=== PATIENT | male | born 1940 | race Caucasian/White ===

== ENCOUNTER 2017-01-22 19:29 | Emergency (ER) | payer OTHER ==
[2017-01-22 20:12] VITALS: TEMP 97.5
--- NOTE | 2017-01-22 20:19 | EDPHY ---
H & P Stated Complaint: unable to urinate, ny catheter in Source: Patient Exam Limitations: No limitations - Personal History Tetanus Vaccine Date: 2010 - Medical/Surgical History Hx Asthma: No Hx Chronic Respiratory Disease: No Hx Diabetes: No Hx Cardiac Disease: Yes Hx Renal Disease: No Hx Cirrhosis: No Hx Alcoholism: No Hx HIV/AIDS: No Hx Splenectomy or Spleen Trauma: No Other PMH: PE, CVA, [place], HTN. Basal cell CA removed from back and shoulder - Social History Smoking Status: Never smoked Time Seen by Provider: 01/22/17 20:13 HPI/ROS: CHIEF COMPLAINT: Urinary retention HISTORY OF PRESENT ILLNESS: 76-year-old male presents emergency department with Ny catheter in place that has not drained since he left the hospital at 4:00 p.m.. Patient was discharged from [facility] this afternoon. 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 He had a traumatic Ny catheter placed 48 hours ago causing damage to his urethra that needed a urologist to have placed the Ny catheter with a scope. Patient has had continuous bladder irrigation for the last 48 hours, it was running clear for 6 hours prior to discharge. Patient has had no urine out since discharge from the hospital at 4:00 p.m. he reports a fullness in his bladder. REVIEW OF SYSTEMS: A comprehensive 10 point review of systems is otherwise negative aside from elements mentioned in the history of present illness. (Ayala Mead) Constitutional: Initial Vital Signs Temperature (C) 36.4 C 01/22/17 20:10 Heart Rate 101 H 01/22/17 20:10 Respiratory Rate 18 01/22/17 20:10 Blood Pressure 147/99 H 01/22/17 20:10 O2 Sat (%) 95 01/22/17 20:10 O2 Delivery Mode Room Air Allergies/Adverse Reactions: No Known Allergies Allergy (Verified 01/22/17 20:10) Home Medications: Medication Instructions Recorded Aspirin [Aspirin 325 mg (*)] 325 mg PO DAILY 06/14/13 Atorvastatin Calcium [Lipitor 10 10 mg PO DAILY 06/14/13 mg (*)] Lisinopril [Zestril 20 mg (*)] 20 mg PO DAILY 06/14/13 Tamsulosin HCl [Flomax 0.4 MG (*)] 0.4 mg PO HS 06/14/13 Warfarin Sodium [Coumadin 7.5MG 3.75 mg PO HS 06/14/13 (*)] Herbals/Supplements -Info Only 1 ea PO AD 05/15/14 Pantoprazole Sodium [Protonix 40mg 40 mg PO BID #60 tab 05/16/14 (*)] Medical Decision Making ED Course/Re-evaluation: 9pm-Dr. Landers consulted. He will come see the patient. 1030pm-Dr Landers paged. He reports he will be here in 15 minutes. 11pm- Dr. Landers at bedside. He replaced the catheter. He is recommending discharge home for the patient to follow up with his urologist at [facility] tomorrow. The patient is given return precautions for any worsening symptoms. (Ayala Mead) I did not see this patient while he was in the emergency department. However his care was discussed with the nurse practitioner while the patient was in the department. I agree with treatment plan and management (Jono Redmond) Departure - Departure Disposition: Home, Routine, Self-Care Clinical Impression: Ny catheter problem Qualifiers: Encounter type: initial encounter Qualified Code(s): T83.9XXA - Unspecified complication of genitourinary prosthetic device, implant and graft, initial encounter Condition: Good Instructions: Ny Catheter Placement and Care (ED) Additional Instructions: Follow up with the Urologist at [facility] tomorrow. Return to the emergency department for any new symptoms, worsening symptoms or concerns. Referrals: Ran Landers MD [Medical Doctor] - As per Instructions (Urologist you saw at [facility])
[2017-01-22] MEDS ORDERED: LIDOCAINE 2% JELLY 20 ML (UROJECT) ONE (20:50)
[2017-01-23 00:16] VITALS: RESP 20
[2017-01-23 00:17] VITALS: BP 168/103; PULSE 102; O2SAT 95
--- NOTE | 2017-01-24 14:16 | GCON ---
[f rep st] CONSULTATION EMERGENCY ROOM CONSULTATION DATE OF CONSULTATION: 01/22/2017 REASON FOR CONSULTATION: Obstructed Blackwell catheter, clot retention. HISTORY OF PRESENT ILLNESS: The patient had an enormous resection of a squamous cell carcinoma of h is neck and shoulder in [facility]. He had a traumatic Blackwell placed down at [facility], a nd was on CBI. His CBI seemed to clear, and he was discharged home, according to the patient and hi s family, but the catheter clogged, and he came to the emergency room. I could not irrigate the cat heter. The catheter was removed at the bedside and replaced with some difficulty with a 24-Swedish 3 -way Blackwell catheter. It irrigated clear. Small clots were removed and no other clots were noted. PAST MEDICAL HISTORY: Squamous cell carcinoma, hypertension, obesity. PAST SURGICAL HISTORY: Squamous cell carcinoma and catheter placement at [facility] with CBI. MEDICATIONS: See medication reconciliation. PHYSICAL EXAMINATION: VITAL SIGNS: Blood pressure is 160s over 90s, heart rate is 90s, saturating 92% on room air. Respiratory rate is 16. ABDOMEN: Soft. Tender to palpation in the lower quadran t. The bladder was palpable. HEENT: Normocephalic, atraumatic. NECK: There is a large, healing incision, clean, dry, and intact at the neck, going down the shoulder into the chest. Drains were p laced, and these were serosanguineous. CHEST: No retractions, no pursed lip breathing. No cyanosi s. ABDOMEN: As above. MUSCULOSKELETAL: No lower extremity edema. GENITOURINARY: Blackwell catheter is in place and not draining until I changed it. PSYCHIATRIC: Normal mood and affect. INTEGUMENT : No rashes or lesions. IMAGING: His PVR noted 650 in the bladder. ASSESSMENT AND PLAN: Blackwell catheter was changed with difficulty, exchanged, and irrigated. Clot wa s evacuated, and he is to be discharged home to follow up with his urologist at [facility]. /[id number]/MODL
== END 2017-01-22 23:58 | disposition home or self-care (01) ==
DX: T83.9XXA Unspecified complication of genitourinary prosthetic device, implant and graft, initial encounter (principal); I10 Essential (primary) hypertension; I25.2 Old myocardial infarction; Z86.73 Personal history of transient ischemic attack (TIA), and cerebral infarction without residual deficits; Z85.828 Personal history of other malignant neoplasm of skin; Z79.82 Long term (current) use of aspirin; Z79.01 Long term (current) use of anticoagulants; Y73.2 Prosthetic and other implants, materials and accessory gastroenterology and urology devices associated with adverse incidents

== ENCOUNTER 2017-01-24 18:10 | Emergency (ER) | payer OTHER ==
[2017-01-24 18:18] VITALS: RESP 16
--- NOTE | 2017-01-24 19:11 | EDPHY ---
H & P Stated Complaint: Clogged Urinary Cath, SOB Time Seen by Provider: 01/24/17 18:35 - Personal History Current Tetanus/Diphtheria Vaccine: Yes Current Tetanus Diphtheria and Acellular Pertussis (TDAP): Yes Tetanus Vaccine Date: 2010 - Medical/Surgical History Hx Asthma: No Hx Chronic Respiratory Disease: No Hx Diabetes: No Hx Cardiac Disease: Yes Hx Renal Disease: No Hx Cirrhosis: No Hx Alcoholism: No Hx HIV/AIDS: No Hx Splenectomy or Spleen Trauma: No Other PMH: PE, CVA, [place], HTN. Afib and Ventricular Tachy as of 01/17. Basal cell CA removed from back and shoulder 05/09/14 - Social History Smoking Status: Never smoked Constitutional: Initial Vital Signs Temperature (C) 37.8 C 01/24/17 18:14 Heart Rate 88 01/24/17 18:14 Respiratory Rate 16 01/24/17 18:14 Blood Pressure 170/84 H 01/24/17 18:14 O2 Sat (%) 84 L 01/24/17 18:14 O2 Delivery Mode Room Air Allergies/Adverse Reactions: No Known Allergies Allergy (Verified 01/22/17 20:10) Home Medications: Medication Instructions Recorded Aspirin [Aspirin 325 mg (*)] 325 mg PO DAILY 06/14/13 Atorvastatin Calcium [Lipitor 10 10 mg PO DAILY 06/14/13 mg (*)] Lisinopril [Zestril 20 mg (*)] 20 mg PO DAILY 06/14/13 Tamsulosin HCl [Flomax 0.4 MG (*)] 0.4 mg PO HS 06/14/13 Warfarin Sodium [Coumadin 7.5MG 3.75 mg PO HS 06/14/13 (*)] Herbals/Supplements -Info Only 1 ea PO AD 05/15/14 Pantoprazole Sodium [Protonix 40mg 40 mg PO BID #60 tab 05/16/14 (*)] Medical Decision Making ED Course/Re-evaluation: CHIEF COMPLAINT: Catheter problems HISTORY OF PRESENT ILLNESS: The patient is a 76 y/o male, with a current Blackwell , complaining of suprapubic pain onset around 15:30 today with associated worsening in his penile swelling. He's had recent trauma from Blackwell placement and the current Blackwell was particularly difficult to place. He endorses reduced urine output since pain onset. He denies other symptoms. He has additional history of CVA, [place], hypertension, atrial fibrillation, and recent surgery for basal cell carcinoma. REVIEW OF SYSTEMS: A 10 point review of systems was performed and is negative with the exception of the elements mentioned in the history of present illness. PHYSICAL EXAM: HR, BP, O2 Sat, RR. Temp noted General Appearance: Alert, well hydrated, appropriate, and non-toxic appearing. Gastrointestinal: Abdomen is soft, mild suprapubic tenderness, non-distended, no masses, no rebound, no guarding, no peritoneal signs. : Edematous penis with Blackwell Neurological: Alert, appropriate, and interactive. Skin: No rashes, good turgor, no nodules on palpation. Past medical history: CVA, [place], HTN, PE, atrial fibrillation and ventricular tachycardia, basal cell carcinoma Past surgical history: carcinoma removal Family history: noncontributory Social history: friend at bedside DIFFERENTIAL DIAGNOSIS: The differential diagnosis for the patient's urinary retention and suprapubic pain included but was not limited to Blackwell malfunction , recent urologic trauma, medication side effect, neurologic causes, outflow obstruction including prostatic hypertrophy, and infection. MEDICAL DECISION MAKING: This is a 76 y/o male presenting with suprapubic pain and reduced urinary output into his Blackwell for the last 6 hours. He has recent urethral trauma that required multiple Blackwell placements. We were able to reposition the Blackwell with minimal discomfort and good urine flow. I think the balloon was likely in his urethral rather than his bladder. He feels improved and ready to go home. He has been referred to urology for follow up. Return precautions given. Departure - Departure Disposition: Home, Routine, Self-Care Clinical Impression: Malfunction of Blackwell catheter Qualifiers: Encounter type: initial encounter Qualified Code(s): T83.011A - Breakdown ( mechanical) of indwelling urethral catheter, initial encounter Condition: Good Instructions: Blackwell Catheter Placement and Care (ED) Additional Instructions: Follow up with your urologist this week. Return to the ED for worsening of condition. Referrals: NONE *PRIMARY CARE P,. [Primary Care Provider] - As per Instructions Eleazar Daley MD [Medical Doctor] - As per Instructions Report Scribed for: Moreno Cooley Report Scribed by: Taylor Fitzgerald Date of Report: 01/24/17 Time of Report: 19:28
[2017-01-24 20:01] VITALS: BP 133/79; PULSE 87; TEMP 98.6; O2SAT 95
== END 2017-01-24 20:02 | disposition home or self-care (01) ==
DX: T83.011A Breakdown (mechanical) of indwelling urethral catheter, initial encounter (principal); I10 Essential (primary) hypertension; I25.2 Old myocardial infarction; Z79.01 Long term (current) use of anticoagulants; Z86.73 Personal history of transient ischemic attack (TIA), and cerebral infarction without residual deficits; Z79.82 Long term (current) use of aspirin; Y82.8 Other medical devices associated with adverse incidents

== ENCOUNTER 2017-01-27 13:08 | Emergency (ER) | payer OTHER ==
[2017-01-27 14:41] VITALS: TEMP 97.7
[2017-01-27 15:20] LABS: % IMMATURE GRANULYOCYTES 0.5 % (0.0-1.1); ABSOLUTE IMMATURE GRANULOCYTES 0.05 10^3/uL (0.00-0.10); ADD DIFF? NO; ADD MORPH? NO; ADD SCAN? NO; ATYPICAL LYMPHOCYTE FLAG 10 (0-99); FRAGMENT RBC FLAG 0 (0-99); HEMATOCRIT 34.9 % (40.0-51.0); HEMOGLOBIN 11.8 g/dL (13.7-17.5); LEFT SHIFT FLG 0 (0-99); LIPEMIA HEMOLYSIS FLAG 90 (0-99); MEAN CELL HEMOGLOBIN 32.8 pg (27.9-34.1); MEAN CELL HEMOGLOBIN CONCENTR. 33.8 g/dL (32.4-36.7); MEAN CELL VOLUME 96.9 fL (81.5-99.8); PLATELET CLUMPS FLAG 10 (0-99); PLATELET COUNT 323 10^3/uL (150-400); RED CELL DISTRIBUTION WIDTH 13.1 % (11.5-15.2)
[2017-01-27 15:25] LABS: INR 2.56 (0.83-1.16); PROTIME(PATIENT) 27.8 SEC (12.0-15.0)
[2017-01-27 15:30] LABS: ANION GAP 12 mEq/L (8-16); CALCIUM 8.6 mg/dL (8.5-10.4); CARBON DIOXIDE 26 mEq/l (22-31); CHLORIDE 102 mEq/L (97-110); CREATININE 1.1 mg/dL (0.7-1.3); GLOMERULAR FILTRATION RATE > 60; GLUCOSE 102 mg/dL (70-100); POTASSIUM 3.6 mEq/L (3.5-5.2); SODIUM 140 mEq/L (134-144)
--- NOTE | 2017-01-27 16:10 | EDPHY ---
H & P Stated Complaint: Catheter partially out-second visit Time Seen by Provider: 01/27/17 14:46 HPI/ROS: CHIEF COMPLAINT: Catheter dislodged HISTORY OF PRESENT ILLNESS: This is a 76-year-old male with a Blackwell catheter that was inadvertently dislodged this afternoon (he caught his foot in the tubing). He initially had a catheter placed on January 15 following a neck dissection for squamous cell carcinoma. This procedure was performed in [facility]. Postoperatively he developed urinary retention. He initially had a traumatic Blackwell placement and subsequently had an irrigating catheter placed endoscopically. He was on continuous bladder irrigation until his discharge from [facility] on January 22. That evening he presented at [facility] when his catheter clotted off. The catheter could not be irrigated and Dr. Landers placed a [address] irrig[address] catheter in the emergency department. His note indicates that this catheter was placed with some difficulty. The patient was scheduled to have the catheter removed in 2 days, but it was inadvertently dislodged today. Since the catheter came out he has not been able to urinate. He has passed some clots. He has mild lower abdominal pain. He has not had fever. He is taking Coumadin. REVIEW OF SYSTEMS: A ten point review of systems was performed and is negative with the exception of the items mentioned in the HPI. Source: Patient Exam Limitations: No limitations - Personal History Current Tetanus/Diphtheria Vaccine: Yes Current Tetanus Diphtheria and Acellular Pertussis (TDAP): Yes Tetanus Vaccine Date: 2010 - Medical/Surgical History Hx Asthma: No Hx Chronic Respiratory Disease: No Hx Diabetes: No Hx Cardiac Disease: Yes Hx Renal Disease: No Hx Cirrhosis: No Hx Alcoholism: No Hx HIV/AIDS: No Hx Splenectomy or Spleen Trauma: No Other PMH: PE, CVA, [place], HTN. Afib and Ventricular Tachy as of 01/17. 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 He is retired. - Physical Exam Exam: General Appearance: Alert. Vital signs reviewed. Focused exam performed. Neck: No lymphadenopathy, supple. Respiratory: Lungs are clear to auscultation; no wheezes, rales, or rhonchi. Cardiovascular: Regular rate and rhythm; no murmur, rub, or gallop. Genitalia: Blood at the urethral meatus. Gastrointestinal: Abdomen is soft and mildly tender in the suprapubic area, no masses or organomegaly, bowel sounds normal. Skin: Warm and dry, no rashes on exposed skin, normal color. Back: No CVAT. Extremities: No lower extremity edema, no calf tenderness or swelling. Neurological: Alert and oriented. Moving all four extremities easily and equally.. Psychiatric: Normal affect. Constitutional: Initial Vital Signs Temperature (C) 36.5 C 01/27/17 13:22 Heart Rate 68 01/27/17 13:22 Respiratory Rate 16 01/27/17 13:22 Blood Pressure 142/102 H 01/27/17 13:22 O2 Sat (%) 95 01/27/17 13:22 O2 Delivery Mode Room Air Allergies/Adverse Reactions: miconazole nitrate [From Neosporin AF] Allergy (Intermediate, Verified 01/27/17 13:27) Rash Home Medications: Medication Instructions Recorded Aspirin [Aspirin 325 mg (*)] 325 mg PO DAILY 06/14/13 Atorvastatin Calcium [Lipitor 10 10 mg PO DAILY 06/14/13 mg (*)] Lisinopril [Zestril 20 mg (*)] 20 mg PO DAILY 06/14/13 Tamsulosin HCl [Flomax 0.4 MG (*)] 0.4 mg PO HS 06/14/13 Warfarin Sodium [Coumadin 7.5MG 3.75 mg PO HS 06/14/13 (*)] Herbals/Supplements -Info Only 1 ea PO AD 05/15/14 Pantoprazole Sodium [Protonix 40mg 40 mg PO BID #60 tab 05/16/14 (*)] Coreg 01/27/17 Medical Decision Making ED Course/Re-evaluation: Patient's catheter was almost completely dislodged when he arrived in the emergency department. Since it fell out he has been unable to urinate on his own. Bladder scan shows 332 ml in urinary bladder. INR is 2.56. Hemoglobin 11.8. No previous labs for comparison. I have spoken with Dr. Hinton on the phone and he is recommending that the patient present at the [facility] office where a catheter will be placed. Patient is comfortable with this plan and is discharged from the emergency department to go directly to [facility]. Differential Diagnosis: I considered a differential diagnosis that includes but is not limited to over anticoagulation, urinary retention secondary to neurogenic bladder or obstruction (blood clot), urinary tract infection, pyelonephritis. - Data Points Laboratory Results: Laboratory Results 01/27/17 15:11 01/27/17 15:11 Departure - Departure Disposition: Home, Routine, Self-Care Clinical Impression: Acute retention of urine, Hematuria Condition: Good Instructions: Urinary Retention in Men (ED) Additional Instructions: Go directly to [facility]. Referrals: Ran Landers MD [Medical Doctor] - As per Instructions
[2017-01-27 16:27] VITALS: BP 164/85; PULSE 69; RESP 18; O2SAT 96
== END 2017-01-27 16:25 | disposition home or self-care (01) ==
DX: R33.9 Retention of urine, unspecified (principal); R31.9 Hematuria, unspecified; I10 Essential (primary) hypertension; I25.2 Old myocardial infarction; Z79.82 Long term (current) use of aspirin; Z79.01 Long term (current) use of anticoagulants; Z86.73 Personal history of transient ischemic attack (TIA), and cerebral infarction without residual deficits; Z85.828 Personal history of other malignant neoplasm of skin

== ENCOUNTER 2017-03-06 10:17 | Inpatient (IN) | payer OTHER ==
--- NOTE | 2017-03-06 07:26 | GHP ---
[f rep st] PREOP HISTORY AND PHYSICAL DATE OF ADMISSION: 03/06/2017 ADMISSION DIAGNOSIS: Benign prostatic hypertrophy with urinary retention. HISTORY OF PRESENT ILLNESS: This is a 76-year-old gentleman who has had urinary retention. He has been evaluated in the office, and he has a 250 g prostate by ultrasound. He has had an AUA score of 35, and at the present time, he is admitted for an open suprapubic prostatectomy. Indications, com plications associated with this procedure, and options have been discussed. Written and verbal cons ent was obtained. He is admitted as noted. PAST MEDICAL HISTORY: BPH, urinary retention, heart attack, hypertension. PAST SURGICAL HISTORY: Squamous cell carcinoma. MEDICATIONS: Aspirin, carvedilol, finasteride, lisinopril, hydrochlorothiazide, tamsulosin, and war farin. ALLERGIES: None. FAMILY HISTORY: Noncontributory. SOCIAL HISTORY: Rare consumption of alcohol. Nonsmoker. REVIEW OF SYSTEMS: Negative cardiac, respiratory, GI, and endocrine. He has had recent squamous ce ll carcinoma of the neck. PHYSICAL EXAM: VITAL SIGNS: Stable. CHEST: Clear. HEART: Regular rate and rhythm. ABDOMEN: N ormal. No organomegaly, rebound, or guarding. EXTREMITIES: Lower extremities are normal. At the present time, he is admitted for the above procedure. Indications, complications, and option s discussed. Written and verbal consent was obtained. He appears to be well informed. /[id number]/MODL
[2017-03-06] MEDS ORDERED: BUPIVACAINE 0.5% 30 ML SDV ONE (10:30)
[2017-03-06] MEDS ORDERED: fentaNYL 250 MCG/5 ML INJ ONE (10:43)
[2017-03-06] MEDS ORDERED: D5W LR 1,000 ML IV SCH ×2 (11:00→14:30)
[2017-03-06] MEDS ORDERED: ceFAZolin 2 GM/DEXTROSE 100 ML IV ONE (11:00)
[2017-03-06] MEDS ORDERED: LR 1,000 ML IV ONE (11:17)
[2017-03-06 11:36] LABS: INR 1.07 (0.83-1.16); PROTIME(PATIENT) 13.8 SEC (12.0-15.0)
[2017-03-06] MEDS ORDERED: PROPOFOL 200 MG/20 ML VIAL ONE (11:37)
[2017-03-06] MEDS ORDERED: OPIUM/BELLADONNA ALKALO SUPP PR PRN (14:18)
[2017-03-06] MEDS ORDERED: NALOXONE HCL 0.4 MG/ML INJ IVP PRN (14:21)
[2017-03-06] MEDS ORDERED: HYDROmorphONE/DILAUDID 6 MG/30 ML PCA IV PRN (14:21)
[2017-03-06] MEDS ORDERED: ONDANSETRON 4 MG/2 ML VIAL IVP PRN (14:21)
[2017-03-06] MEDS ORDERED: ZOLPIDEM TARTRATE 5 MG TAB PO PRN (14:22)
[2017-03-06] MEDS ORDERED: hydrALAZINE 20 MG/ML VIAL ONE (14:23)
--- NOTE | 2017-03-06 14:26 | POSTOPPROG ---
Post Op Note Date of Operation: 03/06/17 Surgeon: Eleazar Daley Pre-op Diagnosis: bph with retention Post-op Diagnosis: same Indication: retention Procedure: partial cystectomy and SP prostatectomy Inf/Abcess present in the surg proc area at time of surgery?: No EBL: 100-500 Complications: none Drains: Valeriano Canales (ny cath and suprapubic malecot catheter) Specimen(s): bladder and prostate---dictated
--- NOTE | 2017-03-06 14:48 | GOP ---
[f rep st] OPERATIVE REPORT DATE OF OPERATION: 03/06/2017 SURGEON: Eleazar Daley MD LINE PULLER: Trisha Hernandez CFA. ANESTHESIA: Rusty Pagan MD, provided general anesthesia. PREOPERATIVE DIAGNOSIS: Prostatomegaly with urinary retention. POSTOPERATIVE DIAGNOSIS: Prostatomegaly with urinary retention with bladder mass, bladder stone. PROCEDURE PERFORMED: Partial cystectomy , cystolithotomy and suprapubic prostatectomy. FINDINGS: BPH, bladder mass and bladder stone SPECIMENS: Frozen section on the dome of the bladder that was chronic inflammation and malignancy not identified and then the prostate was taken out in several sections because the large volume could not accommodate through the bladder neck. ESTIMATED BLOOD LOSS: 250 mL. DESCRIPTION OF PROCEDURE: After appropriate general anesthesia and time-out, he was prepped and draped in normal sterile fashion. Ioban placed over the abdominal incision site, and then he had a lower midline abdominal incision carried down through skin, linea alba, and into the space of Retzius. He did have a right inguinal hernia, but I elected not to address that because that was not a concern. On putting in the retractor, there was an obvious bladder mass at the dome of the bladder that was palpable and thickened, and concern that he either had an intraluminal mass of the bladder or a muscle invasive lesion compatible with a urachal tumor. At that point, after appropriate retraction I could open the bladder and this inflammatory mass seemed mucosal inflammatory, it felt solid and mobile in the dome, had opened the bladder , removed a 1+ cm bladder stone and then placed a stitch at the prostatic side of the cystotomy of a 0 Vicryl. Then he had an intravesical lobe of the prostate and I incised that and dissected between the posterior part of that and the bladder neck so I could get into that subcapsular part of the base of the prostate. I then took the cautery and incised the bladder neck to provide hemostasis. I then placed a finger in the prostatic urethra and enucleated the prostate. No samples were brought out. Then I packed that prostatic fossa with a lap sponge and then was able to put two #0 Vicryl sutures at the right and the left sides of the bladder neck just off the posterior midline where there were small bleeding arteries. Then, at that point, with hemostasis noted with the appropriate packing, I did excision of the dome of the bladder, and basically by feel, went from the inflamed confirmed area and excised it circumferentially. I did enter the peritoneal cavity at that point, and there was no extension into the perineum and there was no suggestion of diverticular disease causing this problem. After excising the lesion, I closed the bladder with a running 0 Vicryl, 2 layers, from the partial cystectomy at the dome, and then at that point, focused our attention back to the prostatic fossa. I removed the packing that was in there, and felt that the bleeding was relatively hemostatic considering the operative procedure. Then a 22 three-way Blackwell catheter passed into the bladder and inflated the balloon to 100 mL, and brought that down and placed it on tension. I then placed a 22-Hong Konger Malecot tube to the left side of the cystotomy and brought that through the abdominal wall, and it was sewn in place with a silk at the skin edge. So I tried to prevent it from being dislodged and it was not on tension. I then closed the bladder from the prostatic base on the anterior surface in 2 layers using 0 Vicryl for each layer. His test was noted to be water tight and hemostasis was noted. I irrigated the bladder and there were no significant clots. When he was waking up he had some increased hematuria but it was not significant, and then after irrigating the wound, I did place a Valeriano-Canales drain was placed at the right side of the abdominal wall. Then I closed the linea alba with a running 0 Vicryl, making sure to take at least 1 cm back from the edge, and at the end, it was well sealed, and it appeared to be that he had an excellent closure of the linea alba. The subcutaneous tissue was irrigated and the skin was closed with en. The specimen of the prostate and the bladder were sent. Frozen section of the bladder said there was just chronic inflammation and no malignancy could be identified, but permanent sections will be performed. I will talk to his son about the findings. He will be admitted for postoperative care. No complications encountered. The specimens were the dome of the bladder and the prostate. Drains are the Blackwell catheter, the Malecot tube and the Valeriano-Canales drain. /[id number]/MODL MTDD
[2017-03-06] MEDS ORDERED: fentaNYL 100 MCG/2 ML INJ ONE (15:02)
[2017-03-06] MEDS: HYDROCODONE/APAP 5/325 TAB PO PRN ×2 (17:42→22:36)
[2017-03-07] MEDS: HYDROCODONE/APAP 5/325 TAB PO PRN (02:09)
[2017-03-07 05:36] LABS: HEMATOCRIT 36.6 % (40.0-51.0); HEMOGLOBIN 12.2 g/dL (13.7-17.5); MEAN CELL HEMOGLOBIN 32.4 pg (27.9-34.1); MEAN CELL HEMOGLOBIN CONCENTR. 33.3 g/dL (32.4-36.7); MEAN CELL VOLUME 97.1 fL (81.5-99.8); RED BLOOD CELL COUNT 3.77 10^6/uL (4.40-6.38); RED CELL DISTRIBUTION WIDTH 13.3 % (11.5-15.2)
[2017-03-07] MEDS: amLODIPine BESYLATE 5 MG TAB PO SCH (05:54)
[2017-03-07] MEDS: LISINOPRIL 20 MG TAB PO SCH (05:55)
[2017-03-07 06:06] LABS: ANION GAP 9 mEq/L (8-16); CALCIUM 8.8 mg/dL (8.5-10.4); CARBON DIOXIDE 24 mEq/l (22-31); CHLORIDE 103 mEq/L (97-110); CREATININE 1.5 mg/dL (0.7-1.3); GLOMERULAR FILTRATION RATE 46; GLUCOSE 155 mg/dL (70-100); POTASSIUM 5.8 mEq/L (3.5-5.2); SODIUM 136 mEq/L (134-144)
--- NOTE | 2017-03-07 07:39 | SOAPPROG ---
SOAP Progress Note Assessment/Plan: Assessment: BPH (benign prostatic hypertrophy) with urinary retention Acute POD # 1, doing well Plan: continue post op care 03/07/17 07:37 Subjective: doing well, a bit over narc Objective: Vital Signs Temp Pulse Resp BP Pulse Ox 36.3 C 81 17 151/81 H 98 03/07/17 04:06 03/07/17 05:50 03/07/17 05:50 03/07/17 05:55 03/07/17 05:50 Laboratory Results 03/07/17 04:37 03/07/17 04:37 03/06/17 03/07/17 03/08/17 05:59 05:59 05:59 Intake Total 3579 Output Total 5410 Balance -1831 PT 13.8 SEC (12.0-15.0) 03/06/17 11:00 INR 1.07 (0.83-1.16) 03/06/17 11:00 Physical Exam - Physical Exam General Appearance: alert (a bit over narc) EENT: No scleral icterus (L) (pinpoint pupils) Respiratory: No respiratory distress Cardiac/Chest: regular rate, rhythm Abdomen: soft Extremities: non-tender Neuro/Psych: alert, oriented x 3 ICD10 Worksheet Patient Problems: Problems Problem Status Onset BPH (benign prostatic hypertrophy) with urinary retention Acute Benign essential hypertension Active Hyperlipidemia Active Ischemic stroke Active - ICD10 Problem Qualifiers (1) BPH (benign prostatic hypertrophy) with urinary retention
[2017-03-07] MEDS ORDERED: AMLODIPINE BESYLATE 5 MG PO SCH (09:00)
[2017-03-07 11:11] LABS: POTASSIUM 5.9 mEq/L (3.5-5.2)
[2017-03-07] MEDS: NS 1,000 ML IV SCH (12:22)
[2017-03-07] MEDS: AMIODARONE HCL 200 MG TAB PO SCH (16:18)
[2017-03-07] MEDS: CARVEDILOL 6.25 MG TAB PO SCH (17:04)
[2017-03-07] MEDS ORDERED: NON-FORMULARY NEW DRUG (Carvedilol [Coreg] 12.5 MG) PO SCH (21:00)
[2017-03-08] MEDS: NS 1,000 ML IV SCH (00:36)
[2017-03-08 04:31] LABS: % IMMATURE GRANULYOCYTES 0.5 % (0.0-1.1); ABSOLUTE IMMATURE GRANULOCYTES 0.05 10^3/uL (0.00-0.10); ADD DIFF? NO; ADD MORPH? NO; ADD SCAN? NO; ATYPICAL LYMPHOCYTE FLAG 0 (0-99); FRAGMENT RBC FLAG 0 (0-99); HEMATOCRIT 35.1 % (40.0-51.0); HEMOGLOBIN 11.7 g/dL (13.7-17.5); LEFT SHIFT FLG 0 (0-99); LIPEMIA HEMOLYSIS FLAG 80 (0-99); MEAN CELL HEMOGLOBIN 31.7 pg (27.9-34.1); MEAN CELL HEMOGLOBIN CONCENTR. 33.3 g/dL (32.4-36.7); MEAN CELL VOLUME 95.1 fL (81.5-99.8); MEAN PLATELET VOLUME 9.6 fL (8.7-11.7); PLATELET CLUMPS FLAG 0 (0-99); PLATELET COUNT 219 10^3/uL (150-400); RED BLOOD CELL COUNT 3.69 10^6/uL (4.40-6.38); RED CELL DISTRIBUTION WIDTH 13.5 % (11.5-15.2)
[2017-03-08 04:47] LABS: ALANINE AMINOTRANSFERASE 35 IU/L (21-72); ALBUMIN 2.8 g/dL (3.5-5.0); ALKALINE PHOSPHATASE 78 IU/L (38-126); ANION GAP 7 mEq/L (8-16); ASPARTATE AMINOTRANSFERASE 20 IU/L (17-59); BILIRUBIN,TOTAL 0.7 mg/dL (0.1-1.4); CALCIUM 8.3 mg/dL (8.5-10.4); CARBON DIOXIDE 23 mEq/l (22-31); CHLORIDE 104 mEq/L (97-110); CREATININE 1.2 mg/dL (0.7-1.3); GLOMERULAR FILTRATION RATE 59; GLUCOSE 120 mg/dL (70-100); POTASSIUM 4.4 mEq/L (3.5-5.2); SODIUM 134 mEq/L (134-144); TOTAL PROTEIN 5.8 g/dL (6.3-8.2)
[2017-03-08] MEDS ORDERED: amLODIPine BESYLATE 5 MG TAB PO SCH (09:00)
[2017-03-08] MEDS ORDERED: LISINOPRIL 20 MG TAB PO SCH (09:00)
[2017-03-08] MEDS: LISINOPRIL 20 MG TAB PO SCH (09:30)
[2017-03-08] MEDS: amLODIPine BESYLATE 5 MG TAB PO SCH (09:30)
[2017-03-08] MEDS: ASPIRIN 325 MG TAB PO SCH (09:31)
[2017-03-08] MEDS: ATORVASTATIN CALCIUM 10 MG TAB PO SCH (09:31)
[2017-03-08] MEDS: CARVEDILOL 6.25 MG TAB PO SCH ×2 (09:31→18:40)
[2017-03-08] MEDS: AMIODARONE HCL 200 MG TAB PO SCH (09:31)
--- NOTE | 2017-03-08 10:11 | SOAPPROG ---
SOAP Progress Note Assessment/Plan: Assessment: s/p partial cystectomy and suprapubic prostatectomy Plan: PT/OT HLIVF po pain meds wean CBI likely home in am. discussed discharge planning 03/08/17 10:10 Subjective: Feels well. Tolerating diet. Having intermittent blader spasms. Urine clear on slow CBI Objective: Vital Signs Temp Pulse Resp BP Pulse Ox 36.8 C 113 H 18 128/98 H 96 03/08/17 03:33 03/08/17 08:20 03/08/17 08:20 03/08/17 08:20 03/08/17 08:20 Laboratory Results 03/08/17 04:21 03/08/17 04:21 03/07/17 03/08/17 03/09/17 05:59 05:59 05:59 Intake Total 3579 2270 882 Output Total 5410 2770 4200 Balance -1831 -500 -3318 PT 13.8 SEC (12.0-15.0) 03/06/17 11:00 INR 1.07 (0.83-1.16) 03/06/17 11:00 Physical Exam - Physical Exam General Appearance: alert, no apparent distress Abdomen: non-tender, soft, other (incision cdi) Skin: normal color Neuro/Psych: alert, normal mood/affect, oriented x 3 ICD10 Worksheet Patient Problems: Problems Problem Status Onset BPH (benign prostatic hypertrophy) with urinary retention Acute Benign essential hypertension Active Hyperlipidemia Active Ischemic stroke Active
[2017-03-08] MEDS ORDERED: MAGNESIUM HYDROXIDE 30 ML UDCUP PO PRN (10:12)
--- NOTE | 2017-03-09 08:14 | GDS ---
[f rep st] DISCHARGE SUMMARY ADMISSION DIAGNOSES: Benign prostatic hypertrophy with urinary retention, as well as bladder mass. DISCHARGE DIAGNOSES: Benign prostatic hypertrophy with urinary retention, as well as bladder mass. CONSULTATIONS: None. PROCEDURES: Include open simple suprapubic prostatectomy and partial cystectomy. INDICATION FOR ADMISSION: The patient is a 76-year-old gentleman who has urinary retention with mas sive prostate enlargement. He also had some abnormalities at the dome of the bladder. HOSPITAL COURSE: Patient was admitted, taken to the operating room, where he underwent the above pr ocedure. He tolerated it well, was transferred to the floor in stable condition. Postoperatively, he was maintained on continuous bladder irrigation, which was slowly weaned. He was started on mei r liquid diet, then slowly advanced as tolerated. Physical Therapy and Occupational Therapy were as ked to evaluate the patient for assistance with ambulation. 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 On postop day #3, he was tolerating a diet. He was ambulating with mini mal assistance. His urine was clear off CBI. He was therefore declared stable for discharge to [facility]. FOLLOWUP: The patient will follow up with Dr. Daley in 1-2 weeks to have his catheters removed. He will resume his Coumadin later this week. Please see discharge medication reconciliation for on license of [facility] information. /[id number]/MODL
[2017-03-09 08:18] VITALS: BP 122/71; PULSE 65; RESP 16; TEMP 98.8; O2SAT 92
[2017-03-09] MEDS: ATORVASTATIN CALCIUM 10 MG TAB PO SCH (09:04)
[2017-03-09] MEDS: AMIODARONE HCL 200 MG TAB PO SCH (09:04)
[2017-03-09] MEDS: amLODIPine BESYLATE 5 MG TAB PO SCH (09:04)
[2017-03-09] MEDS: ASPIRIN 325 MG TAB PO SCH (09:05)
[2017-03-09] MEDS: LISINOPRIL 20 MG TAB PO SCH (09:05)
[2017-03-09] MEDS: CARVEDILOL 6.25 MG TAB PO SCH (09:05)
--- NOTE | 2017-03-09 10:34 | PDIAF ---
- Diagnosis Code Status: Full Code - Medication Management Discharge Medications: Medications to Continue on Transfer Amiodarone HCl [Pacerone (*)] 200 mg PO [id number] 03/06/17 [Last Taken 03/05/17] Amlodipine Besylate [Norvasc] 5 mg PO DAILY 03/06/17 [Last Taken 03/05/17] Aspirin [Aspirin 325 mg (*)] 325 mg PO DAILY 03/06/17 [Last Taken 03/03/17] Atorvastatin Calcium [Lipitor 10 mg (*)] 10 mg PO DAILY 03/06/17 [Last Taken ] Carvedilol [Coreg] 12.5 mg PO BID 03/06/17 [Last Taken 03/05/17] Lisinopril [Zestril 20 mg (*)] 20 mg PO DAILY 03/06/17 [Last Taken 03/05/17] Warfarin Sodium [Coumadin 7.5MG (*)] 7.5 mg PO DAILY #0 03/08/17 [Last Taken ] amLODIPine BESYLATE [Norvasc 5 mg (*)] 5 mg PO DAILY #0 tab 03/08/17 [Last Taken Unknown] diphenhydrAMINE [Benadryl Injection] 25 - 50 mg IVP Q6HRS PRN #0 inj 03/08/17 [ Last Taken Unknown] Discharge Medications: Refer to the Discharge Home Medication list for PRN reason. - Orders Services needed: Home Care, Registered Nurse, Physical Therapy, Occupational Therapy Home Care Face to Face: I certify that this patient was under my care and that I had the required [id number] encounter meeting the encounter requirements on the discharge day. My findings support the fact that the patient is homebound as defined in CMS Chapter 7 Medicare Benefits Manual 30.1.1, The condition of the patient is such that there exists a normal inability to leave home and consequently, leaving home would require a considerable and taxing effort. Diet Recommendation: no restrictions on diet Diet Texture: Regular Texture Diet [place]: Yes - Follow Up Care Current Providers and Referrals: Eleazar Daley MD [Medical Doctor] - Loyd Beck MD [Primary Care Provider] -
== END 2017-03-09 11:35 | disposition home health service (06) | DRG 708 ==
LOC: F3N 10:17 → F1N 14:41
PROVIDERS: ADMIT Specialist; ATTEND Specialist
DX: N40.1 Benign prostatic hyperplasia with lower urinary tract symptoms (principal); N21.0 Calculus in bladder; R33.9 Retention of urine, unspecified; I10 Essential (primary) hypertension; E78.5 Hyperlipidemia, unspecified; Z85.820 Personal history of malignant melanoma of skin
CPT/HCPCS: 97162-GP; 97165-GO; G8978-GP-CK; G8979-GP-CI; G8987-GO-CJ; G8988-GO-CI; J0360; J0690; J1170; J2704; J3010

== ENCOUNTER → 2017-05-05 | Outpatient (CLI) | payer OTHER | LOC: BMCIMAGING 08:47 | PROVIDERS: ATTEND Orthopaedic Surgery | DX: M25.552 Pain in left hip (principal); I25.10 Atherosclerotic heart disease of native coronary artery without angina pectoris ==